=== PATIENT | female | born 1985 | race Caucasian/White ===

== ENCOUNTER 2018-06-16 13:44 | Emergency (ER) | payer BC, OTHER ==
[2018-06-16 13:57] VITALS: BP 138/80
--- NOTE | 2018-06-16 15:24 | ED ---
HPI Chest Pain - HPI Summary HPI Summary: 32 yr old female with the complaint of left ear pain for four years, and vertigo worsening over the period of the past week. She complains of left frontal headache, light sensitivity, vertigo, and neck pain. She also complains of chest pain for the past few months, left sided, lasting several seconds, associated with dizziness, and feeling like she could faint, and also with SOB. She states she passed out twice in the past year. She denies cold , cough symptoms. - History of Current Complaint Chief Complaint: UCDizziness Time Seen by Provider: 06/16/18 15:03 Hx Last Menstrual Period: 06/08/18 Pain Intensity: 2 - Allergy/Home Medications Allergies/Adverse Reactions: Allergies Allergy/AdvReac Type Severity Reaction Status Date / Time MS Sulfa Antibiotics Allergy Intermediate Rash Verified 06/16/18 13:54 [Sulfa Antibiotics] MS Azithromycin Allergy Mild Rash Verified 06/16/18 13:54 [From Zithromax] trimethoprim Allergy Dizziness Verified 06/16/18 13:54 ENVIROMENTAL Allergy Intermediate COUGHING A Uncoded 06/16/18 13:54 ANEEZING Home Medications: Home Medications NK [No Home Medications Reported] 06/16/18 [History Confirmed 06/16/18] PMH/Surg Hx/FS Hx/Imm Hx Respiratory History: Reports: Hx Asthma Infectious Disease History: No Infectious Disease History: Denies: Traveled Outside the [place] in Last 30 Days - Family History Known Family History: Positive: Cardiac Disease - Social History Alcohol Use: Weekly Alcohol Amount: couple glasses/beers a week Substance Use Type: Reports: None Smoking Status (MU): Never Smoked Tobacco Review of Systems Constitutional: Negative Positive: Ear Ache Positive: Chest Pain Positive: Shortness Of Breath Neurological: Other - dizziness, vertigo All Other Systems Reviewed And Are Negative: Yes Physical Exam Triage Information Reviewed: Yes Vital Signs On Initial Exam: Initial Vitals Temp Pulse Resp BP Pulse Ox 99.3 F 78 18 138/80 99 06/16/18 13:48 06/16/18 13:48 06/16/18 13:48 06/16/18 13:48 06/16/18 13:48 Vital Signs Reviewed: Yes Appearance: Positive: Well-Appearing, No Pain Distress Skin: Positive: Warm, Skin Color Reflects Adequate Perfusion Eyes: Positive: Normal, EOMI, WALTER ENT: Positive: Pharynx normal, TMs normal. Negative: Nasal congestion, Nasal drainage, Sinus tenderness Neck: Positive: Nontender Respiratory/Lung Sounds: Positive: Clear to Auscultation, Breath Sounds Present Cardiovascular: Positive: RRR. Negative: Murmur Abdomen Description: Positive: Nontender Musculoskeletal: Positive: Strength/ROM Intact. Negative: Edema Left, Edema Right Neurological: Positive: Sensory/Motor Intact, Alert, Oriented to Person Place, Time, CN Intact II-III Psychiatric: Positive: Normal - [place] Coma Scale Best Eye Response: 4 - Spontaneous Best Motor Response: 6 - Obeys Commands Best Verbal Response: 5 - Oriented Coma Scale Total: 15 Diagnostics - Vital Signs Vital Signs Temp Pulse Resp BP Pulse Ox 06/16/18 13:48 99.3 F 78 18 138/80 99 - Laboratory Lab Statement: Any lab studies that have been ordered have been reviewed, and results considered in the medical decision making process. - EKG 06/16/18 Cardiac Rate: NL EKG Rhythm: Sinus Rhythm ST Segment: Normal Ectopy: None Chest Pain Course/Dx - Course Course Of Treatment: 32 yr old with vertigo, headache, neck pain, chest pain, sob, and dizziness. She is declining ambulance transport to the ER for further work up of her symptoms. - Diagnoses Provider Diagnoses: Chest pain, Vertigo, Ear pain, Headache, Elevated blood pressure reading Discharge - Sign-Out/Discharge Documenting (check all that apply): Patient Departure All imaging exams completed and their final reports reviewed: No Studies - Discharge Plan Condition: Good Disposition: AGAINST MEDICAL ADVICE Referrals: Karla Dubon [Primary Care Provider] - - Billing Disposition and Condition Condition: GOOD Disposition: Against Medical Advice
== END 2018-06-16 15:40 | disposition left against medical advice (07) ==
LOC: UCEAST 13:44
DX: R07.9 Chest pain, unspecified (principal); R42 Dizziness and giddiness; H92.02 Otalgia, left ear; R51 Headache; R03.0 Elevated blood-pressure reading, without diagnosis of hypertension; J45.909 Unspecified asthma, uncomplicated; Z88.2 Allergy status to sulfonamides; Z88.1 Allergy status to other antibiotic agents; Z91.09 Other allergy status, other than to drugs and biological substances
CPT/HCPCS: 93005; 99202; G0463

== ENCOUNTER → 2018-06-16 16:10 | Emergency (ER) | payer OTHER ==
[~2018-06-16 16:10] MED LIST: Ibuprofen TAB* 600 MG PO ONE; Meclizine TAB* 12.5 MG PO ONE
[2018-06-16 18:47] LABS: Hematocrit 37 % (35-47); Hemoglobin 12.5 g/dl (12.0-16.0); Mean Corpuscular HGB Conc 34 g/dl (31-36); Mean Corpuscular Hemoglobin 31 pg (27-31); Mean Corpuscular Volume 90 fL (80-97); Mean Platelet Volume 9.4 fL (7.4-10.4); Platelet Count 261 10^3/ul (150-450); Red Blood Count 4.07 10^6/ul (4.00-5.40); Red Cell Distribution Width 12 % (10.5-15); White Blood Count 6.2 10^3/ul (3.5-10.8)
--- NOTE | 2018-06-16 19:03 | ED ---
Throat Pain/Nasal Congestion - HPI Summary HPI Summary: A 32 y/o female accompanied by her boyfriend presents to the ED c/o ear pain and ringing. In the ED room, the patient has a pulse of 82 BPM, O2 saturation of 97%, and blood pressure of 129/73. According to the patient, her left ear has been bothering her for 4 years. She stated that it feels like a balloon is blown up inside and sometimes she loses hearing. She noted that lately it has been throwing her balance off for the past week. She has mentioned her ear troubles to her doctor, but everything looked normal. Patient currently has nausea and headache, but denies any rhinorrhea, photophobia, fevers, and coughing. She does have dizziness (room spinning) since Tuesday, which she stated that when she focuses on an item, it either comes at her or away from her. Again, this has been present for past 4 years, however, it is worse this week. As per boyfriend, she went to but was asked to come to [facility] ED because she mentioned to them that she had chest pain. She denies any chest pain now but does come on sometimes. The chest pain she had today was for a split second. Patient noted that she almost falls because of the dizziness/room- spinning. Patient sleeps on left side instead of her right side. No control. - History of Current Complaint Chief Complaint: EDEarPain Time Seen by Provider: 06/16/18 17:12 Hx Obtained From: Patient Onset/Duration: Sudden Onset, Lasting Weeks, Still Present, Worse Since Associated Signs And Symptoms: Positive: Negative Cough: None - Allergies/Home Medications Allergies/Adverse Reactions: Allergies Allergy/AdvReac Type Severity Reaction Status Date / Time azithromycin Allergy Rash Verified 06/16/18 17:06 Sulfa (Sulfonamide Allergy Rash Verified 06/16/18 17:06 Antibiotics) trimethoprim Allergy Dizziness Verified 06/16/18 16:33 ENVIROMENTAL Allergy Intermediate COUGHING A Uncoded 06/16/18 16:33 ANEEZING PMH/Surg Hx/FS Hx/Imm Hx Endocrine/Hematology History: Denies: Hx Diabetes Respiratory History: Reports: Hx Asthma - Surgical History Surgery Procedure, Year, and Place: PER PATIENT, NO PRIOR SURGERIES. Infectious Disease History: No Infectious Disease History: Denies: Traveled Outside the [place] in Last 30 Days - Family History Known Family History: Positive: Cardiac Disease - Social History Alcohol Use: Weekly Alcohol Amount: couple glasses/beers a week Substance Use Type: Reports: None Smoking Status (MU): Never Smoked Tobacco Review of Systems Negative: Fever, Chills Negative: Photophobia, Erythema Positive: Ear Ache, Nasal Discharge - RHINORRHEA. Negative: Sore Throat Positive: Chest Pain - NOT CURRENTLY Negative: Shortness Of Breath, Cough Positive: Nausea. Negative: Abdominal Pain, Vomiting Negative: dysuria, hematuria Negative: Myalgia, Edema Negative: Rash Neurological: Other - NEGATIVE: DIZZINESS AND LOSS OF BALANCE Positive: Headache All Other Systems Reviewed And Are Negative: Yes Physical Exam - Summary Physical Exam Summary: Constitutional: Well-developed, Well-nourished, Alert. (-) Distressed Skin: Warm, Dry HENT: Normocephalic; Atraumatic Eyes: Conjunctiva normal Neck: Musculoskeletal ROM normal neck. (-) JVD, (-) Stridor, (-) Tracheal deviation Cardio: Rhythm regular, rate normal, Heart sounds normal; Intact distal pulses; The pedal pulses are 2+ and symmetric. Radial pulses are 2+ and symmetric. (-) Murmur Pulmonary/Chest wall: Effort normal. (-) Respiratory distress, (-) Wheezes, (-) Rales Abd: Soft, (-) epigastric tenderness, (-) Distension, (-) Guarding, (-) Rebound Musculoskeletal: (-) Edema Lymph: (-) Cervical adenopathy Neuro: Alert, Oriented x3 Psych: Mood and affect Normal GCS: 15 [place]-hallpike and supine roll rotation to the left did not elicit any nystagmus. [place]-hallpike and supine roll roation to the right did reproduce her symptoms of vertigo. Triage Information Reviewed: Yes Vital Signs On Initial Exam: Initial Vitals Temp Pulse Resp BP Pulse Ox 99.0 F 77 20 144/77 100 06/16/18 16:30 06/16/18 16:30 06/16/18 16:30 06/16/18 16:30 06/16/18 16:30 Vital Signs Reviewed: Yes - [place] Coma Scale Best Eye Response: 4 - Spontaneous Best Motor Response: 6 - Obeys Commands Best Verbal Response: 5 - Oriented Coma Scale Total: 15 Diagnostics - Vital Signs Vital Signs Temp Pulse Resp BP Pulse Ox 06/16/18 16:30 99.0 F 77 20 144/77 100 - Laboratory Lab Results: Lab Results 06/16/18 Range/Units 18:38 WBC 6.2 (3.5-10.8) 10^3/ul RBC 4.07 (4.00-5.40) 10^6/ul Hgb 12.5 (12.0-16.0) g/dl Hct 37 (35-47) % MCV 90 (80-97) fL MCH 31 (27-31) pg MCHC 34 (31-36) g/dl RDW 12 (10.5-15) % Plt Count 261 (150-450) 10^3/ul MPV 9.4 (7.4-10.4) fL Result Diagrams: 06/16/18 18:38 06/16/18 18:38 Lab Statement: Any lab studies that have been ordered have been reviewed, and results considered in the medical decision making process. - CT BRAIN CT CT Interpretation Completed By: Radiologist Summary of CT Findings: No acute intracranial pathology. ED PHYSICIAN REVIEWED THIS RADIOLOGY REPORT. Re-Evaluation - Re-Evaluation First Eval Re-Evaluation Time: 19:00 Change: Improved Comment: Patient ambulated around the ED with a steady gait. EENT Course/Dx - Course Course Of Treatment: A 32 y/o female accompanied by her boyfriend presents to the ED c/o ear pain and ringing. In the ED room, the patient has a pulse of 82 BPM, O2 saturation of 97%, and blood pressure of 129/73. According to the patient, her left ear has been bothering her for 4 years. She stated that it feels like a balloon is blown up inside and sometimes she loses hearing. She noted that lately it has been throwing her balance off for the past week. She has mentioned her ear troubles to her doctor, but everything looked normal. Patient currently has nausea and headache, but denies any rhinorrhea, photophobia, fevers, and coughing. She does have dizziness (room spinning) since Tuesday, which she stated that when she focuses on an item, it either comes at her or away from her. Again, this has been present for past 4 years, however, it is worse this week. As per boyfriend, she went to but was asked to come to [facility] ED because she mentioned to them that she had chest pain. She denies any chest pain now but does come on sometimes. The chest pain she had today was for a split second. Patient noted that she almost falls because of the dizziness/room-spinning. Patient sleeps on left side instead of her right side. Physical examination findings were significant for [place]-hallpike and supine roll rotation to the left did not elicit any nystagmus. [place]-hallpike and supine roll roation to the right did reproduce her symptoms of vertigo. A Brain CT revealed no acute intracranial pathology. GCS: 15. Hematology and Chemistry screens were done. No significant laboratory abnormalities were found. In the ED course, the patient received Motrin and Antivert. During re-evaluation, the patient ambulated safely around the ED with a steady gait. Patient will be discharged with a diagnosis of meniere's disease and vertigo. She will be sent home with a prescription of Antivert. She is to take medications as prescribed. Patient is to follow up with ENT physician in 2-3 days. She is to return to ED for any new or worsening symptoms. Patient is agreeable with this plan. - Diagnoses Provider Diagnoses: Menieres disease, Vertigo Discharge - Sign-Out/Discharge Documenting (check all that apply): Patient Departure - DISCHARGE - Discharge Plan Condition: Stable Disposition: HOME Prescriptions: Meclizine TAB* [Antivert 12.5 TAB*] 25 mg PO Q8H PRN #20 tab PRN Reason: Vertigo Patient Education Materials: Vertigo (ED), Meniere Disease (ED) Referrals: Carroll Ventura MD [Medical Doctor] - 3 Days Additional Instructions: FOLLOW UP WITH ENT PHYSICIAN IN 2-3 DAYS. TAKE MEDICATION PRESCRIBED. RETURN TO ED FOR ANY NEW OR WORSENING SYMPTOMS. - Attestation Statements Document Initiated by Scribe: Yes Documenting Scribe: Daniel Alegre Provider For Whom [place] is Documenting (Include Credential): Earl Palomares MD Scribe Attestation: Daniel Fisher, scribed for Earl Palomares MD on 06/16/18 at 2021. Status of Scribe Document: Ready
[2018-06-16 19:05] LABS: Albumin 4.4 g/dL (3.2-5.2); Albumin/Globulin Ratio 1.7 (1-3); BUN/Creatinine Ratio 17.2 (8-20); Calcium 9.2 mg/dL (8.6-10.3); EGFR Non-African American 75.9 (>60); Globulin 2.6 g/dL (2-4); Potassium 3.8 mmol/L (3.5-5.0); Total Bilirubin 0.6 mg/dL (0.2-1.0)
[2018-06-16 20:22] VITALS: BP 115/77
== END | disposition home or self-care (01) ==
LOC: ED 16:10
DX: H81.09 Meniere's disease, unspecified ear (principal); H92.09 Otalgia, unspecified ear; J34.89 Other specified disorders of nose and nasal sinuses; R07.9 Chest pain, unspecified; R11.0 Nausea; R51 Headache; Z88.2 Allergy status to sulfonamides
CPT/HCPCS: 36415; 70450; 80053; 85027; 99283; A9270-GY

== ENCOUNTER 2019-06-02 10:03 | Emergency (ER) | payer OTHER ==
--- OUTSIDE RECORDS SUMMARY | 2019-06-02 10:08 | XMS REPORT | Continuity of Care Document ---
:1985 External Reference #:[id number] Author Name Arpit Morgan M.D. (transmitted by agent of provider Barb Lee ) Address [address], [place] [address] Care Team Providers Name Role Phone Karla Dubon FNP - Nurse Care Team Information [employer] Maintenance Inspector Practitioner Problems Active Problems Provider Date Dizziness and giddiness Arpit Morgan M.D. Onset: 05/07/2019 Abnormal gait Arpit Morgan M.D. Onset: 05/07/2019 Abnormal involuntary movement Arpit Morgan M.D. Onset: 05/07/2019 Neck pain Arpit Morgan M.D. Onset: 05/07/2019 Headache Arpit Morgan M.D. Onset: 05/07/2019 Chronic fatigue syndrome Arpit Morgan M.D. Onset: 05/07/2019 Skin sensation disturbance Arpit Morgan M.D. Onset: 05/07/2019 Social History Type Date Description Comments Sex Unknown Tobacco Use Start: Unknown Never Smoked Cigarettes Smoking Status Reviewed: 05/07/19 Never Smoked Cigarettes ETOH Use Currently consumes alcohol Tobacco Use Start: Unknown Patient has never smoked Recreational Drug Use Denies Drug Use Exercise Type/Frequency Exercises rarely Allergies, Adverse Reactions, Alerts Active Allergies Reaction Severity Comments Date Trimethaphan 05/07/2019 Medications Active Medications SIG Qnty Indications Ordering Provider Date Hydralazine HCL 1 by mouth three Unknown 10mg times a day as Tablets needed History Medications No Active Medications Unknown 05/07/2019 - 05/07/2019 Immunizations Description No Information Available Vital Signs Date Vital Result Comment 05/07/2019 9:09am Height 62 inches 5'2" Weight 105.00 lb Heart Rate 92 /min BP Systolic 122 mmHg BP Diastolic 80 mmHg BMI (Body Mass Index) 19.2 kg/m2 Results Description No Information Available Procedures Description No Information Available Medical Devices Description No Information Available Encounters Type Date Location Provider Dx Diagnosis Office Visit 05/07/2019 [facility] Arpit Morgan, R20.2 Paresthesia of 9:00a [facility] [place] skin R53.82 Chronic fatigue, unspecified R51 Headache M54.2 Cervicalgia R25.1 Tremor, unspecified R26.81 Unsteadiness on feet R42 Dizziness and giddiness Assessments Date Code Description Provider 05/07/2019 R20.2 Paresthesia of skin Arpit Morgan M.D. 05/07/2019 R53.82 Chronic fatigue, unspecified Arpit Morgan M.D. 05/07/2019 R51 Headache Arpit Morgan M.D. 05/07/2019 M54.2 Cervicalgia Arpit Morgan M.D. 05/07/2019 R25.1 Tremor, unspecified Arpit Morgan M.D. 05/07/2019 R26.81 Unsteadiness on feet Arpit Morgan M.D. 05/07/2019 R42 Dizziness and giddiness Arpit Morgan M.D. Plan of Treatment Future Appointment(s):07/20/2019 9:30 am - Arpit Morgan M.D. at [facility]05/07/2019 - Arpit Morgan M.D.R20.2 Paresthesia of skinNew Xrays:MRI Cervical Spine W/Wo, Ordered: 05/07/19MRI Brain W/Wo, Ordered: 05/07/19Follow up:Follow up in 12 weeksRecommendations:Call me 1 week after the MRIs to get the vpqphxiC32.82 Chronic fatigue, [id number] BgvcelztL12.2 NzrpayymyvmI69.1 Tremor, [id number] Unsteadiness on feetR42 Dizziness and giddiness Functional Status Description No Information Available Mental Status Description No Information Available Referrals Description No Information Available
[2019-06-02 10:28] VITALS: BP 121/80
--- NOTE | 2019-06-02 11:14 | UC ---
Respiratory Complaint HPI - HPI Summary HPI Summary: CHIEF COMPLAINT and HPI: This is a 33-year-old female with a severe cough that is persistent and began approximately 2 weeks ago. She has a history of asthma as a child, but this condition has resolved. However, she has noted wheezing. She denies chest pain. She does say she is intermittently short of breath. VITAL SIGNS & SaO2 REVIEWED. Within normal limits unless noted here. Jcmj=350.1 NURSES NOTE REVIEWED. "Pt c/o severe cough, chest congestion that started on Thanksgiving and has gotten progressively worse." - History of Current Complaint Chief Complaint: UCGeneralIllness Stated Complaint: COUGH Time Seen by Provider: 06/02/19 11:05 Hx Last Menstrual Period: 05/03/19 Pain Intensity: 0 - Allergies/Home Medications Allergies/Adverse Reactions: Allergies Allergy/AdvReac Type Severity Reaction Status Date / Time Sulfa (Sulfonamide Allergy Severe Rash Verified 06/02/19 10:23 Antibiotics) trimethoprim Allergy Severe Dizziness Verified 06/02/19 10:23 azithromycin Allergy Mild Rash Verified 06/02/19 10:23 ENVIROMENTAL Allergy Intermediate COUGHING A Uncoded 06/02/19 10:23 ANEEZING Home Medications: Home Medications Guaifenesin/Dextromethorphan [Cough Dm Syrup] 118 ml PO ONCE 06/02/19 [History Confirmed 06/02/19] PMH/Surg Hx/FS Hx/Imm Hx - Additional Past Medical History Additional PMH: PAST MEDICAL HISTORY- CHRONIC and RECURRENT HEALTH PROBLEM LIST REVIEWED. Information relevant to present complaint: history of asthma as a child VISIT HISTORY REVIEWED. MEDICATIONS & ALLERGIES REVIEWED. HYPERTENSION STATUS:no history of hypertension FAMILY HISTORY: Positive for: cancer. SOCIAL HISTORY: Smoker:nonsmoker Home:lives with her Employment:works cleaning houses. Previously Healthy: Yes - Surgical History Surgical History: None Surgery Procedure, Year, and Place: PER PATIENT, NO PRIOR SURGERIES. - Family History Known Family History: Positive: Cardiac Disease - Social History Alcohol Use: Occasionally Alcohol Amount: couple glasses/beers a week Substance Use Type: None Smoking Status (MU): Never Smoked Tobacco Household Exposure Type: Cigarettes Review of Systems All Other Systems Reviewed And Are Negative: Yes Constitutional: Positive: Fever Skin: Positive: Negative Respiratory: Positive: Shortness Of Breath, Cough Cardiovascular: Positive: Negative Gastrointestinal: Positive: Negative Genitourinary: Positive: Negative Is Patient Immunocompromised?: No Physical Exam - Summary Physical Exam Summary: 100.1 F Appearance: The patient is well-appearing, is in no pain or distress, and is well-nourished. Eyes: Conjunctiva are clear. Pupils are equal and reactive to light and accommodation. Extra ocular muscle movement is intact. ENT: The hearing is grossly normal, the pharynx is normal, and the TMs are normal. There is no muffled or hoarse voice. No stridor. Neck: The neck is supple and there is no lymphadenopathy. Respiratory: The chest is non-tender to palpation and without crepitus. The lungs are clear, and there is no respiratory distress. No rales or rhonchi. extended expiratory phase with a rare wheeze. Cardiovascular: Heart sounds reveal a regular rate and rhythm. There are no clicks, rubs or murmurs. There are no carotid bruits or thrills. Circulation is grossly intact. Abdomen: The abdomen is soft and nontender. There is no organomegaly. Bowel sounds are present and within normal limits. No point tenderness at McBurneys point. No CVA tenderness. Musculoskeletal: Strength is intact. The patient moves all extremities. Neurological: The patient is alert. Motor and sensory are examination grossly intact. Speech is normal. Psychological: The patient displays age appropriate behavior, and is conversant. GCS=15. Skin: Negative for rashes. Triage Information Reviewed: Yes Vital Signs: Initial Vital Signs Temp 100.1 F 06/02/19 10:24 Pulse 72 06/02/19 10:24 Resp 16 06/02/19 10:24 BP 121/80 06/02/19 10:24 Pulse Ox 100 06/02/19 10:24 Respiratory Course/Dx - Course Course Of Treatment: This is a 33-year-old female with a severe cough that is persistent and began approximately 2 weeks ago. She has a history of asthma as a child, but this condition has resolved. However, she has noted wheezing. She denies chest pain. She does say she is intermittently short of breath. . Physical examination shows an extended expiratory phase with rare wheeze. There are frequent coughs that are nonproductive. My diagnosis is bronchitis with bronchospasm, possible early pneumonia. I will start the patient on albuterol with spacer as well as prednisone. I will also give her doxycycline twice a day for 7 days. The patient knows to go to the emergency department for any chest pain, shortness of breath. It is increasing, elevated temperature or worsening or different cough. - Differential Dx/Diagnosis Differential Diagnosis/HQI/PQRI: Bronchitis, Lower Resp Infection, Pneumothorax , Pulmonary Embolism, Other - bronchospasm Provider Diagnosis: Bronchitis with bronchospasm Discharge ED - Sign-Out/Discharge Documenting (check all that apply): Patient Departure All imaging exams completed and their final reports reviewed: No Studies - Discharge Plan Condition: Stable Disposition: HOME Prescriptions: Albuterol HFA INHALER* [Ventolin HFA Inhaler*] 1 - 2 puff INH Q6H #1 mdi MDD 8 PUFFS DOXYcycline CAP(*) [DOXYcycline 100MG CAP(*)] 100 mg PO BID #14 cap MDD 2 Inhaler, Assist Devices [Aerochamber Mv] 1 mis XX Q6HR #1 mis MDD 8 PUFFS A DAY predniSONE TAB* [Deltasone 20 MG TAB*] 20 mg PO BID #6 tab MDD 2 Patient Education Materials: Acute Bronchitis (ED), Community Acquired Pneumonia (DC), Bronchospasm (ED) Referrals: No Primary Care Phys,NOPCP [Primary Care Provider] - Additional Instructions: WE DISCUSSED: PLEASE SEEK CARE AT THE EMERGENCY DEPARTMENT IF SYMPTOMS WORSEN OR IF NEW SYMPTOMS DEVELOP. FOLLOW UP WITH YOUR PRIMARY CARE PHYSICIAN IF CONDITION CONTINUES BEYOND 3 DAYS WITHOUT IMPROVEMENT. YOUR DIAGNOSIS IS: BRONCHITIS WITH BRONCHOSPASM; possible early pneumonia YOUR PRESCRIPTION RECOMMENDATION IS: doxycyline twice a day for 7 days; albuterol and spacer 2 puffs 4 3-4 times a day; prednisone 40mg a day for 3 days. OTHER INSTRUCTIONS: FOR PAIN AND/OR SLEEP: For pain: Ibuprofen (Motrin and other brand names) 400-600mg PLUS acetaminophen (Tylenol and other brand names) 500mg - 1000mg every 8 hours. Any illness causing cough, congestion, sore throat or sinus discomfort can be helped by doing the following: STAND UNDER SHOWER STREAM TO LOOSEN SECRETIONS. STAY AWAY FROM ANY SMOKE OR IRRITANTS. WHAT ELSE CAN HELP RELIEVE YOUR SYMPTOMS: GENERAL TYPES OF MEDICINE THAT MAY HELP DECONGESTANTS: helps relieve stuffiness and clears sinuses. Pseudoephedrine ( Sudafed or generic) is effective but you need to ask the pharmacist for it because it may be kept behind the counter. ANTIHISTAMINES: are NOT helpful in many colds and flus because they can worsen sore throat, dry eyes and mouth and cause drowsiness. Examples are diphenhydramine, doxylamine and chlorpheniramine. They can help dry you out if you are having profuse, clear drainage from the nose. EXPECTORANTS: helps thin mucous in the nose and chest, making it easier to clear the fluid out. Expectorants are in most combination cough/cold remedies and should be taken with plenty of water. Guaifenesin is the most common expectorant and it comes in pill or liquid form. Mucinex is an extended release form of guaifenesin. COUGH SUPPRESANT: reduces the body's cough reflex. Dextromethorphan is in over the counter products. Rarely, narcotics such as codeine or hydrocodone are used to suppress cough. SPECIFIC MEDICATIONS: Some of these may come in combination. In general, they all contain the same or similar active ingredients. The most important goal is to liquefy all the phlegm and get it out of your head and chest: The following medicines (you can buy them without prescription) may help: To help with cough: DEXTROMETHORPHAN (Vicks, Robitussin, Nyquil and other brands) To help break up phlegm: GUAIFENESIN (Mucinex, Robitussin, other brands) To help clear congestion: PSEUDOEPHEDRINE (Sudafed, Dimetapp, other brands) TRY TO CLEAR NOSE: AFRIN NASAL SPRAY: 2-3 SPRAYS PER NOSTRIL, TWICE A DAY FOR TWO DAYS ONLY. USEFUL WAYS TO FEEL BETTER WITHOUT MEDICATIONS: STAND UNDER SHOWER STREAM TO LOOSEN SECRETIONS. USE A VAPORIZOR. STAY AWAY FROM ANY SMOKE OR IRRITANTS. USE SALINE NASAL SPRAY TO KEEP FLOW OF MUCOUS FROM NOSTRILS AND SINUSES. CONSIDER USING NETI POT TO HELP WITH ALLERGIES AND CONGESTION IN THE NOSE. USE THIS THREE TIMES A WEEK. YOU CAN GET THIS AT [facility] IN [place] OR VARIOUS DRUGSTORES. DRINK LOTS OF WARM FLUIDS USEFUL HOME REMEDIES: WARM WATER GARGLES, WITH TSP OF SALT PER 8 OUNCES OF WATER, GARGLE FOR A FEW SECONDS AND SPIT OUT; GARGLE AND SPIT OUT; EVERY THREE HOURS. AND/OR: WARM WATER OR TEA, HONEY AND LEMON; 2-3 CUPS A DAY. FOR SORE THROAT: KEEP THROAT MOIST WITH LOZENGES; TEA AND HONEY. USE WARM WATER GARGLES 3-4 TIMES A DAY. FOLLOW UP: RE-CHECK IN 1O DAYS, NEEDED, IF YOU ARE NOT IMPROVING. RETURN HERE OR SEE YOUR PHYSICIAN. RE-CHECK SOONER IF INCREASED PAIN OR TEMPERATURE. - Billing Disposition and Condition Condition: STABLE Disposition: Home
== END 2019-06-02 11:50 | disposition home or self-care (01) ==
LOC: UCEAST 10:03
DX: J40 Bronchitis, not specified as acute or chronic (principal); J98.01 Acute bronchospasm; R06.2 Wheezing; Z88.1 Allergy status to other antibiotic agents; Z88.2 Allergy status to sulfonamides; Z91.09 Other allergy status, other than to drugs and biological substances; Z80.9 Family history of malignant neoplasm, unspecified
CPT/HCPCS: 99212; G0463

== ENCOUNTER 2019-09-01 13:18 | Emergency (ER) | payer OTHER ==
--- OUTSIDE RECORDS SUMMARY | 2019-09-01 13:25 | XMS REPORT | Continuity of Care Document ---
:1985 External Reference #:[id number] Author Name Arpit Morgan M.D. (transmitted by agent of provider Sanaz Olson) Address [address] [facility], [place] [address] Care Team Providers Name Role Phone Karla Dubon FNP - Nurse Care Team Information Grid Inspector Practitioner Problems Active Problems Provider Date Visual disturbance Arpit Morgan M.D. 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 Onset: [...] Unknown Never Smoked Cigarettes Smoking Status Reviewed: 08/09/19 Never Smoked Cigarettes ETOH Use Currently consumes [...] Available Vital Signs Date Vital Result Comment 08/09/2019 11:59am Height 62 inches 5'2" Weight 109.00 lb Heart Rate 71 /min BP Systolic 119 mmHg BP Diastolic 90 mmHg BMI (Body Mass Index) 19.9 kg/m2 05/07/2019 9:09am Height 62 inches 5'2" Weight 105.00 lb Heart Rate 92 /min BP Systolic 122 mmHg BP Diastolic 80 mmHg BMI (Body Mass Index) 19.2 kg/m2 Results Test Acquired Date Facility Test Result H/L Range Note Laboratory test 05/07/2019 [facility] C Reactive < 1.00 mg/L Normal <8.[address] [place] [address] [phone] Comp Metabolic 05/07/2019 [facility] Sodium 139 mmol/L Normal 135-[address] [place] [address] [phone] Potassium 4.0 mmol/L Normal 3.5-5.0 Chloride 106 mmol/L Normal 101-111 Co2 Carbon Dioxide 27 mmol/L Normal 22-32 Anion Gap 6 mmol/L Normal 2-11 Glucose 97 mg/dL Normal 70-100 Blood Urea Nitrogen 10 mg/dL Normal 6-24 Creatinine 0.68 mg/dL Normal 0.51-0.95 BUN/Creatinine Ratio 14.7 Normal 8-20 Calcium 9.7 mg/dL Normal 8.6-10.3 Total Protein 7.5 g/dL Normal 6.4-8.9 Albumin 4.7 g/dL Normal 3.2-5.2 Globulin 2.8 g/dL Normal 2-4 Albumin/Globulin Ratio 1.7 Normal 1-3 Total Bilirubin 0.60 mg/dL Normal 0.2-1.0 Alkaline Phosphatase 55 U/L Normal 34-104 Alt 16 U/L Normal 7-52 Ast 16 U/L Normal 13-39 Egfr Non- 100.3 >60 Egfr 121.3 >60 1 CBC Auto 05/07/2019 [facility] White Blood 4.7 10^3/uL Normal 3.5-10.[address] [place] [address] [phone] Red Blood Count 4.19 10^6/uL Normal 3.70-4.87 Hemoglobin 13.2 g/dL Normal 12.0-16.0 Hematocrit 37 % Normal 35-47 Mean Corpuscular Volume 89 fL Normal 80-97 Mean Corpuscular Hemoglobin 32 pg High 27-31 Mean Corpuscular HGB Conc 35 g/dL Normal 31-36 Red Cell Distribution Width 12 % Normal 10-15 Platelet Count 246 10^3/uL Normal 150-450 Mean Platelet Volume 10.0 fL Normal 7.4-10.4 Abs Neutrophils 2.7 10^3/uL Normal 1.5-7.7 Abs Lymphocytes 0.9 10^3/uL Low 1.0-4.8 Abs Monocytes 1.0 10^3/uL High 0-0.8 Abs Eosinophils 0.1 10^3/uL Normal 0-0.6 Abs Basophils 0.0 10^3/uL Normal 0-0.2 Abs Nucleated RBC 0.0 10^3/uL Granulocyte % 56.9 % Lymphocyte % 19.1 % Monocyte % 21.3 % Eosinophil % 1.9 % Basophil % 0.8 % Nucleated Red Blood Cells % 0.0 Laboratory test 05/07/2019 [facility] Creatine 40 U/L Normal 10-[address] Kinase(CK) [place] [address] [phone] Erythrocyte Sed Rate 9 mm/Hr Normal 0-19 Free T4 (Free Thyroxine) 0.92 ng/dL Normal 0.61-1.12 TSH (Thyroid Stim Horm) 1.72 mcIU/mL Normal 0.34-5.60 Vitamin B12 05/07/2019 [facility] Vitamin B12 421 pg/mL Normal 180-914 [address] [place] [address] [phone] Folic Acid (Folate) > 20.00 ng/mL >3.99 Laboratory test 05/07/2019 [facility] Nuclear AB <1:80 (Negative ) [address] (Margarita) [place] [address] Igg [phone] Rheumatoid Factor < 10 IU/mL Normal <15 1 Because ethnic data is not always readily available, this report includes an eGFR for both -Americans and non- Americans. The National Kidney Disease Education Program (NKDEP) does not endorse the use of the MDRD equation for patients that are not between the ages of 18 and 70, are , have extremes of body size, muscle mass, or nutritional status, or are non- or non-. According to the National Kidney Foundation, irrespective of diagnosis, the stage of the disease is based on the level of kidney function: Stage Description GFR(mL/min/1.73 m(2)) 1 Kidney damage with normal or decreased GFR 90 2 Kidney damage with mild decrease in GFR 60-89 3 Moderate decrease in GFR 30-59 4 Severe decrease in GFR 15-29 5 Kidney failure <15 (or dialysis) 2 Normal Range 180 to 914 Indeterminate Range 145 to 180 Deficient Range <145 3 <1:80 (Negative) REFERENCE VALUE <1:80 (Negative) Test Performed by: [facility] [place] [address] [place] [id number] [place]: Ian Melendrez M.D. 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 08/09/2019 R53.82 Chronic fatigue, unspecified Arpit Morgan M.D. 08/09/2019 R51 Headache Arpit Morgan M.D. 08/09/2019 R25.1 Tremor, unspecified Arpit Morgan M.D. 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 gland 08/09/2019 H53.8 Other visual disturbances Arpit Morgan M.D. 08/09/2019 R42 Dizziness and giddiness Arpit Morgan M.D. 05/07/2019 R20.2 Paresthesia of skin Arpit Morgan M.D. 05/07/2019 R53.82 Chronic fatigue, unspecified Arpit Morgan M.D. 05/07/2019 R51 Headache Arpit Morgan M.D. 05/07/2019 M54.2 Cervicalgia Arpit Morgan M.D. 05/07/2019 R25.1 Tremor, unspecified Arpit Morgan M.D. 05/07/2019 R26.81 Unsteadiness on feet Arpit Morgan M.D. 05/07/2019 R42 Dizziness and giddiness Arpit Morgan M.D. Plan of Treatment Future Appointment(s):01/04/2020 4:00 pm - Arpit Morgan M.D. at [facility]08/09/2019 - Arpit Morgan M.D.R20.2 Paresthesia of skinFollow up:Follow up in 4 monthsRecommendations:Call me 1 week after your visual evoked ejmsqgnohzK08.82 Chronic fatigue, aytfbigjfwmW20 KtlzbkzuP25.1 Tremor, bsrvsaguctbM70.5 Neoplasm of uncertain behavior of pineal glandReferral: Avi Vasquez MD, Surgery,VzybnzibcdphT12.8 Other visual disturbancesNew Orders:Evoked Potential Study, Visual, Ordered: 08/09/19R42 Dizziness and giddinessNew Therapy:Physical Therapy Functional Status Description No Information Available Mental Status Description No Information Available Referrals Refer to Dr Reason for Referral Status Appt Date Avi Vasquez MD Created [address] [place] [id number] [phone]
[2019-09-01 13:31] VITALS: BP 133/78
--- NOTE | 2019-09-01 14:48 | UC ---
Abdominal Pain Female HPI - HPI Summary HPI Summary: 34 yo female presents with nausea. She tells me that for the last 6 days she has had nausea, increased urination, and elevated temp (tmax 99.6F). Last night she developed left flank pain and increased nausea. She has been taking tylenol with good relief initially, but no longer helping. She has a decreased appetite and feels tired overall. States has never had a UTI in the past. Denies SOB, chest pain, abdominal pain, vomiting, hematuria, vaginal bleeding or discharge. LMP was 08/03. - History of Current Complaint Chief Complaint: UCAbdominalPain Stated Complaint: PAIN AND BURNING LEFT SIDE OF ABDOMIN Time Seen by Provider: 09/01/19 14:48 Hx Obtained From: Patient Hx Last Menstrual Period: 08/03/19 Onset/Duration: Gradual Onset Severity Initially: Mild Severity Currently: Moderate Pain Intensity: 5 Pain Scale Used: 0-10 Numeric Allergies/Adverse Reactions: Allergies Allergy/AdvReac Type Severity Reaction Status Date / Time Sulfa (Sulfonamide Allergy Severe Rash Verified 09/01/19 13:32 Antibiotics) trimethoprim Allergy Severe Dizziness Verified 09/01/19 13:32 azithromycin Allergy Mild Rash Verified 09/01/19 13:32 ENVIROMENTAL Allergy Intermediate COUGHING A Uncoded 09/01/19 13:32 ANEEZING Home Medications: Home Medications Ciprofloxacin TAB* [Cipro 500 MG TAB*] 500 mg PO BID #14 tab 09/01/19 [Rx] PMH/Surg Hx/FS Hx/Imm Hx - Additional Past Medical History Additional PMH: None - Surgical History Surgical History: None Surgery Procedure, Year, and Place: NO PRIOR SURGERIES. - Family History Known Family History: Positive: Cardiac Disease - Social History Lives: With Family Alcohol Use: Occasionally Alcohol Amount: couple glasses/beers a week Substance Use Type: None Smoking Status (MU): Never Smoked Tobacco Household Exposure Type: Cigarettes Review of Systems All Other Systems Reviewed And Are Negative: No Constitutional: Positive: Fever Skin: Positive: Negative Respiratory: Positive: Negative Cardiovascular: Positive: Negative Gastrointestinal: Positive: Nausea Genitourinary: Positive: Dysuria Neurovascular: Positive: Negative Neurological/Mental Status: Positive: Negative Psychological: Positive: Negative Physical Exam - Summary Physical Exam Summary: GENERAL: NAD. WDWN. No pain distress. SKIN: No rashes, sores, lesions, or open wounds. NECK: Supple. Nontender. No lymphadenopathy. CHEST: CTAB. No r/r/w. No accessory muscle use. Breathing comfortably and in no distress. CV: RRR. Pulses intact. Cap refill <2seconds ABDOMEN: Soft. NTTP. No distention or guarding. LEFT mild CVA tenderness. Mild suprapubic ttp. Bowel sounds present NEURO: Alert. PSYCH: Age appropriate behavior. Triage Information Reviewed: Yes Vital Signs: Initial Vital Signs Temp 0 F 09/01/19 13:28 Pulse 88 09/01/19 13:28 Resp 16 09/01/19 13:28 BP 133/78 09/01/19 13:28 Pulse Ox 100 09/01/19 13:28 Laboratory Tests 09/01/19 09/01/19 09/01/19 15:06 15:08 15:29 POC Urine Color Yellow POC Urine Clarity Clear POC Urine pH 7.0 POC Ur Specif [place] 1.020 POC Urine Protein Negative POC Ur Glucose (UA) Negative POC Urine Ketones Negative POC Urine Blood 1+ A POC Urine Nitrite Negative POC Urine Bilirubin Negative POC Urine Urobilinogen 0.2 POC U Leukocyte Esteras 1+ A POC Ur Test Negative Influenza A (Rapid) Negative Influenza B (Rapid) Negative Vital Signs: Temp Pulse Resp BP Pulse Ox 98.9 F 88 16 133/78 100 09/01/19 15:03 09/01/19 13:28 09/01/19 13:28 09/01/19 13:28 09/01/19 13:28 Vital Signs Reviewed: Yes Abd Pain Female Course/Dx - Course Course Of Treatment: UA positive. Urine negative. POC flu negative. Pt is non-toxic appearing and is afebrile here. Suspect UTI/early pyleonephritis. Will treat with Cipro - Differential Dx/Diagnosis Provider Diagnosis: Pyelonephritis Discharge ED - Sign-Out/Discharge Documenting (check all that apply): Patient Departure All imaging exams completed and their final reports reviewed: No Studies - Discharge Plan Condition: Stable Disposition: HOME Prescriptions: Ciprofloxacin TAB* [Cipro 500 MG TAB*] 500 mg PO BID #14 tab Patient Education Materials: Urinary Tract Infection in Women (ED), Kidney Infection (ED) Referrals: No Primary Care Phys,NOPCP [Primary Care Provider] - Additional Instructions: If you develop a fever, shortness of breath, chest pain, new or worsening symptoms - please call your PCP or go to the ED immediately. - Billing Disposition and Condition Condition: STABLE Disposition: Home
[2019-09-01 15:40] LABS: Influenza A Molecular Negative (Negative); Influenza B Molecular Negative (Negative)
== END 2019-09-01 15:49 | disposition home or self-care (01) ==
LOC: UCEAST 13:18
DX: N12 Tubulo-interstitial nephritis, not specified as acute or chronic (principal); R11.0 Nausea; Z88.2 Allergy status to sulfonamides; Z91.09 Other allergy status, other than to drugs and biological substances
CPT/HCPCS: 81003; 84702; 87086; 99212; G0463

== ENCOUNTER 2019-10-03 14:08 | Emergency (ER) | payer OTHER ==
--- OUTSIDE RECORDS SUMMARY | 2019-10-03 14:37 | XMS REPORT | Continuity of Care Document ---
:1985 External Reference #:[id number] Author Name Marie Schmitt MD Address [address] [facility], [place] [address] Care Team Providers Name Role Phone Karla Dubon FNP - Nurse Care Team Information Equity Manager Practitioner Problems Active Problems Provider Date Visual [...] Medications SIG Qnty Indications Ordering Provider Date Hydroxyzine HCL 1 by mouth 1-2 Unknown 10mg times a day as Tablets needed for anxiety History Medications No Active Medications Unknown 05/07/2019 [...] Date Facility Test Result H/L Range Note Order 08/22/2019 [facility] Evoked <pending> [address] [place] [address] Study, Visual [phone] Laboratory test 05/07/2019 [facility] C Reactive < 1.00 Normal <8.[address] Protein mg/[place] [address] [phone] Comp Metabolic 05/07/2019 [facility] Sodium 139 mmol/L Normal 135-[address] [place] [address] [phone] Potassium 4.0 mmol/L Normal 3.5-5.0 Chloride 106 [...] Egfr 121.3 >60 1 CBC Auto 05/07/2019 [facility] White Blood 4.7 10^3/uL Normal 3.5-10.[address] [place] [address] [phone] Red Blood Count 4.19 10^6/uL Normal 3.70-4.87 [...] Blood Cells % 0.0 Laboratory test 05/07/2019 [facility] Creatine 40 U/L Normal 10-[address] Kinase(CK) [place] [address] [phone] Erythrocyte Sed Rate 9 mm/Hr Normal 0-19 Free T4 (Free Thyroxine) 0.92 ng/dL Normal 0.61-1.12 TSH (Thyroid Stim Horm) 1.72 mcIU/mL Normal 0.34-5.60 Vitamin B12 05/07/2019 [facility] Vitamin B12 421 pg/mL Normal 180-914 [address] [place] [address] [phone] Folic Acid (Folate) > 20.00 ng/mL >3.99 Laboratory test 05/07/2019 [facility] Nuclear AB <1:80 (Negative ) [address] (Margarita) [place] [address] Igg [phone] Rheumatoid Factor < 10 IU/mL Normal <15 [...] REFERENCE VALUE <1:80 (Negative) Test Performed by: [place] [address] Gastroenterology Nurse Practitioner: Ian Melendrez M.D. 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 H53.8 Other visual disturbances R42 Dizziness and giddiness 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 08/09/2019 R53.82 Chronic fatigue, unspecified Arpit Morgan M.D. 08/09/2019 R51 Headache Arpit Morgan M.D. 08/09/2019 R25.1 Tremor, unspecified Arpit Morgan M.D. 08/09/2019 D44.5 Neoplasm of uncertain behavior of pineal Arpit Morgan M.D. gland 08/09/2019 H53.8 Other visual disturbances Arpit Morgan M.D. 08/09/2019 R42 Dizziness and giddiness Arpit Morgan M.D. 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 05/07/2019 R20.2 Paresthesia of skin Arpit Morgan M.D. 05/07/2019 R53.82 Chronic fatigue, unspecified Arpit Morgan M.D. 05/07/2019 R51 Headache Arpit Morgan M.D. 05/07/2019 M54.2 Cervicalgia Arpit Morgan M.D. 05/07/2019 R25.1 Tremormikayla M.D. 05/07/2019 R26.81 Unsteadiness on feet Arpit Morgan M.D. 05/07/2019 R42 Dizziness and giddiness Arpit Morgan M.D. Plan of Treatment Future Appointment(s):01/04/2020 4:00 pm - Arpit Morgan M.D. at [place] [facility]10/03/2019 - Marie Schmitt MDR35.0 Frequency of micturitionComments:you should go to convenient care today to get further assessment. I suspect you have a kidney stone,not just a UTI Functional Status Description No Information Available Mental Status Description No Information Available Referrals Refer to Dr Reason for Referral Status Appt Date Avi Vasquez MD Created [address] [place] [address] [place] [address] [phone]
--- OUTSIDE RECORDS SUMMARY | 2019-10-03 14:37 | XMS REPORT | Continuity of Care Document ---
:1985 External Reference #:[id number] Author Name Brianna Camejo MD (transmitted by agent of provider Esperanza España) Address [address], [address] [place] [address] Care Team Providers Name Role Phone Karla Dubon FNP - Nurse Care Team Information [employer] [place] [phone] Practitioner Problems Active Problems Provider Date Visual disturbance Arpit oMrgan M.D. Onset: 08/09/2019 Neoplasm of uncertain behavior [...] Test Result H/L Range Note Order 08/22/2019 [facility] Evoked <pending> [address] [place] [address] Study, Visual [phone] Laboratory test 05/07/2019 [facility] C Reactive < 1.00 Normal <8.[address] Protein mg/[place] [address] [phone] Comp Metabolic 05/07/2019 [facility] Sodium 139 mmol/L Normal 135-[address] [place] [address] [phone] Potassium 4.0 mmol/L Normal 3.5-5.0 Chloride 106 [...] Egfr 121.3 >60 1 CBC Auto 05/07/2019 [facility] White Blood 4.7 10^3/uL Normal 3.5-10.[address] [place] [address] [phone] Red Blood Count 4.19 10^6/uL Normal 3.70-4.87 [...] Blood Cells % 0.0 Laboratory test 05/07/2019 [facility] Creatine 40 U/L Normal 10-[address] Kinase(CK) [place] [address] [phone] Erythrocyte Sed Rate 9 mm/Hr Normal 0-19 Free T4 (Free Thyroxine) 0.92 ng/dL Normal 0.61-1.12 TSH (Thyroid Stim Horm) 1.72 mcIU/mL Normal 0.34-5.60 Vitamin B12 05/07/2019 [facility] Vitamin B12 421 pg/mL Normal 180-914 2 [address] Folate [address] [place] [address] [phone] Folic Acid (Folate) > 20.00 ng/mL >3.99 Laboratory test 05/07/2019 [facility] Nuclear AB <1:80 (Negative ) [address] (Margarita) [place] [address] Igg [phone] Rheumatoid Factor < 10 IU/mL Normal <15 [...] REFERENCE VALUE <1:80 (Negative) Test Performed by: [facility] [address] [place] [address] Medical Support Specialist: Ian Melendrez M.D. 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 at [facility]08/09/2019 - Arpit Morgan M.D.R20.2 Paresthesia of skinFollow up:Follow up in 4 monthsRecommendations:Call me 1 week after your visual evoked qcamyziyizB47.82 Chronic fatigue, fsrkpgvwuivW62 YkckumhzZ18.1 Tremor, bbhrktwdzqnD31.5 Neoplasm of uncertain behavior of pineal glandReferral: Avi Vasquez MD, Surgery,TnjymlrkrtczR81.8 Other visual kmqebwmbifxjQ54 Dizziness and giddinessNew Therapy:Physical WqxjsfbC65.4 Benign neoplasm of pineal gland Functional Status Description No Information Available Mental Status Description No Information Available Referrals Refer to Reason for Referral Status Appt Date Avi Vasquez MD Created [address] [place] [address] [phone]
[2019-10-03 14:39] VITALS: BP 153/83
--- NOTE | 2019-10-03 15:06 | UC ---
Abdominal Pain Female HPI - HPI Summary HPI Summary: The patient is a 34-year-old female that presents here with a 2-3 day history of dysuria urgency and frequency. She has some mild vague left flank pain. She is currently on her period. She denies any vaginal discharge or itching. Her dysuria is throughout the entire stream of urination. She was seen here about a month ago. She had similar symptoms then but at that time had severe left CVA tenderness. A urine culture was done and was negative. She she states she felt back to normal after couple of days. She then states that she started having some dysuria and urgency in a few weeks. She was called in the second course of antibiotics. She has felt feverish however whenever she checks her temperature is 99. She denies any chills. She has no nausea vomiting or diarrhea. She has no pelvic pain. She has no abdominal pain when walking. Her appetite is been good. - History of Current Complaint Chief Complaint: UCGU Stated Complaint: SIDE PAIN Time Seen by Provider: 10/03/19 14:45 Hx Obtained From: Patient Hx Last Menstrual Period: 10/02/19 Onset/Duration: Gradual Onset, Lasting Minutes Timing: Intermittent Episodes Lasting: Severity Initially: Moderate Severity Currently: Moderate Pain Intensity: 5 Pain Scale Used: 0-10 Numeric Location: Other - urethral Radiates: No Character: Burning Aggravating Factor(s): Other: - urinating Alleviating Factor(s): Nothing Associated Signs and Symptoms: Positive: Back Pain - left flank/mild, Urinary Symptoms, Vaginal Bleeding - on period. Negative: Diaphoresis, Fever, Cough, Chest Pain, Dizzy, Decreased Appetite, Vaginal Discharge, Nausea, Vomiting, Diarrhea Allergies/Adverse Reactions: Allergies Allergy/AdvReac Type Severity Reaction Status Date / Time Sulfa (Sulfonamide Allergy Severe Rash Verified 10/03/19 14:39 Antibiotics) trimethoprim Allergy Severe Dizziness Verified 10/03/19 14:39 azithromycin Allergy Mild Rash Verified 10/03/19 14:39 ENVIROMENTAL Allergy Intermediate COUGHING A Uncoded 10/03/19 14:39 ANEEZING Home Medications: Home Medications Phenazopyridine TAB* [Pyridium TAB*] 100 mg PO TID #6 tab 10/03/19 [Rx] PMH/Surg Hx/FS Hx/Imm Hx Previously Healthy: Yes - Surgical History Surgical History: None Surgery Procedure, Year, and Place: NO PRIOR SURGERIES. - Family History Known Family History: Positive: Cardiac Disease, Hypertension - Social History Alcohol Use: Occasionally Alcohol Amount: couple glasses/beers a week Substance Use Type: None Smoking Status (MU): Never Smoked Tobacco Household Exposure Type: Cigarettes Review of Systems All Other Systems Reviewed And Are Negative: Yes Constitutional: Positive: Negative Skin: Positive: Negative Eyes: Positive: Negative ENT: Positive: Negative Respiratory: Positive: Negative Cardiovascular: Positive: Negative Gastrointestinal: Positive: Other - mild/vague left flank pain Genitourinary: Positive: Dysuria, Frequency, Urgency Motor: Positive: Negative Neurovascular: Positive: Negative Musculoskeletal: Positive: Negative Neurological/Mental Status: Positive: Negative Psychological: Positive: Negative Physical Exam Triage Information Reviewed: Yes Appearance: Well-Appearing, No Pain Distress, Well-Nourished Vital Signs: Initial Vital Signs Temp 100.8 F 10/03/19 14:33 Pulse 88 10/03/19 14:33 Resp 18 10/03/19 14:33 BP 153/83 10/03/19 14:33 Pulse Ox 100 10/03/19 14:33 Vital Signs Reviewed: Yes Eyes: Positive: Conjunctiva Clear ENT: Positive: Hearing grossly normal. Negative: Nasal congestion, Nasal drainage, Trismus, Muffled voice, Hoarse voice Dental Exam: Normal Neck: Positive: Supple, Nontender Respiratory: Positive: Lungs clear, Normal breath sounds, No respiratory distress Cardiovascular: Positive: RRR Abdomen Description: Positive: Nontender, No Organomegaly, Soft, CVA Tenderness (L) - mild Bowel Sounds: Positive: Present Pelvic Exam: Positive: Other - pt declined pelvic exam/consents to self swab Musculoskeletal: Positive: ROM Intact, No Edema Neurological: Positive: Alert Psychological Exam: Normal Skin Exam: Normal Diagnostics - Laboratory Lab Results: UA ++RBCs otherwise neg - Radiology No standard instances Radiology Interpretation Completed By: Radiologist Summary of Radiographic Findings: scant free fluid in pelvis Abd Pain Female Course/Dx - Differential Dx/Diagnosis Provider Diagnosis: Dysuria Discharge ED - Sign-Out/Discharge Documenting (check all that apply): Patient Departure All imaging exams completed and their final reports reviewed: Yes - Discharge Plan Condition: Stable Disposition: HOME Patient Education Materials: Dysuria (ED) Print Language: BELARUSIAN Referrals: No Primary Care Phys,NOPCP [Primary Care Provider] - Additional Instructions: Multiple test are pending If nothing shows up on the tests to explain your symptoms I suggest you follow up with Dr. Collins To ER for worsening symptoms or if still febrile after 48 hours your BP is elevated today this will need follow up when you get an primary care provider - Billing Disposition and Condition Condition: STABLE Disposition: Home
[2019-10-05 13:01] LABS: Chlamydia trachomatis NAA Negative (Negative); Neisseria gonorrhoeae (GC) NAA Negative (Negative)
[2019-10-06 09:18] LABS: Albumin 4.5 g/dL (3.2-5.2); Albumin/Globulin Ratio 1.7 (1-3); BUN/Creatinine Ratio 15.1 (8-20); Calcium 9.3 mg/dL (8.6-10.3); EGFR African American 111.1 (>60); EGFR Non-African American 91.8 (>60); Globulin 2.7 g/dL (2-4); Potassium 3.9 mmol/L (3.5-5.0); Total Bilirubin 0.8 mg/dL (0.2-1.0); Total Protein 7.2 g/dL (6.4-8.9)
== END 2019-10-03 16:15 | disposition home or self-care (01) ==
LOC: UCEAST 14:08
DX: R30.0 Dysuria (principal); R10.9 Unspecified abdominal pain; Z88.1 Allergy status to other antibiotic agents; Z88.2 Allergy status to sulfonamides
CPT/HCPCS: 74176; 81003; 87086; 87480; 87491; 87510; 87591; 87660; 99211; G0463